=== PATIENT | female | born 1995 | race Caucasian/White ===

== ENCOUNTER 2020-03-25 16:48 | Outpatient (CLI) | payer OTHER, SELFPAY ==
--- NOTE | ~2020-03-25 | XR_ITS ---
XR knee RT 3V 03/25/2020 17:18 INDICATION: Right knee pain PROCEDURE: 4 views right knee COMPARISON: 03/04/2013 FINDINGS: Fracture, dislocation or subluxation is not identified. No significant joint effusion. The soft tissues appear within normal limits. No foreign bodies are identified. IMPRESSION: 1: NO ACUTE BONE OR JOINT ABNORMALITY IDENTIFIED. Reviewed, dictated and finalized at location A.
== END 2020-03-25 16:49 | disposition home or self-care (01) ==
LOC: CHSIMG 16:51
PROVIDERS: PCP Family Medicine; Visit Provider Family Medicine
DX: M25.561 Pain in right knee (principal)
CPT/HCPCS: 73562

== ENCOUNTER 2020-10-08 19:17 | Emergency (ER) | payer OTHER, SELFPAY ==
[2020-10-08 19:25] VITALS: BP 124/61; PULSE 87; RESP 18; TEMP 36.6; O2SAT 98
--- NOTE | 2020-10-08 19:43 | ED.DENTAL ---
HPI - Dental/Oral General Chief complaint: Dental/Oral Stated complaint: trouble swallowing, bleeding in the mouth. Source: patient Mode of arrival: ambulatory Limitations: no limitations History of Present Illness HPI Narrative: this is a 24-year-old female with recent dental extraction actually saw her dentist today and had her wisdom teeth pulled currently having some pain and swelling in the gum and lower jaw area had taken some Tylenol with codeine that was prescribed by her dentist but is afraid that is causing her to be short of breath, because her mother is allergic to codeine. Currently she is breathing easy with no audible wheezing no shortness of breath no fever chills no chest pain. There is some mild oozing from the gums but otherwise have has a gauze that she is biting down on an the gauze is not soaked with blood. Complaint: tooth pain Teeth map: 1. dental extraction molars, with pain inflammation and with minimal oozing and no overt bleeding from the gums. Onset (ago): hour(s) Duration: constant Severity: moderate Severity scale (1-10): 8 Relieving factors: prescription analgesics ( Worries about allergies, because her mother is allergic to codeine) and other Exacerbating factors: chewing and swallowing Context: other ( recent dental extraction) Associated symptoms: gum swelling Treatment prior to arrival: none Related Data Home Medications Medication Instructions Recorded Confirmed acetaminophen-codeine 1 tablet PO PRN PRN 10/08/20 10/08/20 amoxicillin 500 mg PO TID 10/08/20 10/08/20 sumatriptan succinate 100 mg PO PRN PRN 10/08/20 10/08/20 topiramate 50 mg PO BID 10/08/20 10/08/20 Allergies Allergy/AdvReac Type Severity Reaction Status Date / Time No Known Allergies Allergy Unverified 10/20/18 13:47 Review of Systems Review of Systems: All systems reviewed & are unremarkable except as noted in HPI and below PMFSH Past Medical History Medical History Dental caries Family History Family History Other Diabetes mellitus Family history of malignant neoplasm Social History Social History Smoking status: Heavy tobacco smoker Alcohol intake: never Exam Const: General: no acute distress and alert Orientation/consciousness: patient oriented x3 HENMT: Head: normal to inspection Other: left lower molar dental extraction performed today currently gum inflammation with minimal bleeding. Eyes: Conjunctivae: conjunctivae normal Pupils: Equal, round and reactive pupils present Neck: Neck: normal visual inspection, no lymphadenopathy and no meningeal signs Resp: Effort & Inspection: normal respiratory effort GI: Auscultation: normal bowel sounds : General: Yes no CVA tenderness Urinary Catheter: Urinary Catheter: patent and draining Back/Spine/Pelvis: Back: no CVA tenderness Skin: General skin exam: normal color Rashes: no rashes Psych: Appearance: grossly normal Mental Status: mental status grossly normal Course Course Emergency Course: Advised to stop taking Tylenol with codeine will prescribe Ultram, will give a dose of Toradol while here along with some Zofran ODT for nausea. Vital Signs Vital signs: Vital Signs Temperature 36.6 C 10/08/20 19:25 Pulse Rate 87 10/08/20 19:25 Respiratory Rate 18 10/08/20 19:25 Blood Pressure 124/61 10/08/20 19:25 Pulse Oximetry 98 10/08/20 19:25 Temperature 36.6 C 10/08/20 19:25 Pulse Rate 87 10/08/20 19:25 Respiratory Rate 18 10/08/20 19:25 Blood Pressure 124/61 10/08/20 19:25 Pulse Oximetry 98 10/08/20 19:25 Critical Care Time Critical Care Time Critical Care Time: No Discharge Plan Discharge Clinical Impression: Toothache Patient Disposition: Home, Self-Care Condition: Stable Instructions: Antibioti
[2020-10-08] MEDS: KETOROLAC (*BKC) 60 MG/2 ML VIAL IM (19:52)
[2020-10-08] MEDS: ONDANSETRON HCL ODT 4 MG TABLET PO (19:52)
[2020-10-08 20:10] VITALS: BP 128/70; PULSE 80; RESP 20; O2SAT 98
== END 2020-10-08 20:11 | disposition home or self-care (01) ==
PROVIDERS: Emergency Provider Emergency Medicine; PCP Family Medicine
DX: K08.89 Other specified disorders of teeth and supporting structures (principal)
CPT/HCPCS: 96372; 99283; A9270; J1885

== ENCOUNTER 2021-10-15 13:43 | Outpatient (CLI) | payer OTHER, SELFPAY ==
--- NOTE | ~2021-10-15 | XR_ITS ---
XR_CERV2-3V_CR 10/15/2021 14:13 Indication: Cervical spine pain for 3 years Procedure: 3 views of the cervical spine Comparison: 06/07/2019 Findings: There is reversal of cervical lordosis which is unchanged from prior examination, likely du e to muscle spasm. No prevertebral soft tissue swelling. No evidence for perched facet. No acute frac ture or traumatic malalignment. Lung apices are normal. Impression: 1: No acute abnormality of the cervical spine. 2: Reversal of cervical lordosis, likely due to muscle spasm. Reviewed, dictated and finalized at location B. ER EXPERT Impression: 1: No acute abnormality of the cervical spine. 2: Reversal of cervical lordosis, likely due to muscle spasm.
--- NOTE | ~2021-10-15 | XR_ITS ---
XR thoracic spine 3V 10/15/2021 14:12 Indication: Back pain Procedure: 3 views of the thoracic spine Comparison: No prior studies for comparison. Findings: Mild levocurvature of the lower thoracic spine. Vertebral body heights are maintained. No f racture, subluxation or dislocation. No paraspinal soft tissue abnormality. Pedicles are intact. Visu alized lung parenchyma is unremarkable. Impression: 1: No acute abnormality of the thoracic spine. Reviewed, dictated and finalized at location B. K HOLDER Impression: 1: No acute abnormality of the thoracic spine.
== END 2021-10-15 13:44 | disposition home or self-care (01) ==
PROVIDERS: PCP Family Medicine; Visit Provider Nurse Practitioner Family
DX: M54.9 Dorsalgia, unspecified (principal); M54.2 Cervicalgia
CPT/HCPCS: 72040; 72072

== ENCOUNTER 2022-03-29 00:31 | Emergency (ER) | payer OTHER, SELFPAY ==
--- NOTE | ~2022-03-29 | CT_ITS ---
EXAMINATION: CT brain wo con DATE: 03/29/2022 01:42 INDICATION: Headache. TECHNIQUE: Computed tomography (CT) of the head was performed without intravenous contrast. The mA wa s adjusted according to patient size. Iterative reconstruction technique was employed. The dose-lengt h product was 529.67 mGy-cm. COMPARISON: Cervical spine MRI 05/20/2017 FINDINGS: There is no intracranial hemorrhage, acute infarction, or abnormal intracranial mass lesion . The cerebellar tonsils extend 6 mm inferior to foramen magnum. The ventricles are normal in size. T here is mild mucosal thickening in the paranasal sinuses. The mastoid air cells are normal. The orbit s are normal. IMPRESSION: 1. Chiari I malformation. Reviewed, dictated and finalized at location A. IMPRESSION: 1. Chiari I malformation.
--- NOTE | 2022-03-29 00:41 | ED.HA ---
HPI - Headache General Chief Complaint: Headache Stated Complaint: lower back pain, Migrain Time Seen by Provider: 03/29/22 00:41 Source: patient Mode of arrival: ambulatory Limitations: no limitations History of Present Illness HPI Narrative: 26-year-old female with a history of she had a history of Chiari malformation migraine, recurrent headaches presents to the ER with 5 hour history of -- diffuse headache -- nausea with multiple episodes of -vomiting -- photophobia -- simultaneous bilateral sacroiliac pain without any history of trauma no aura noted. MD elicited complaint: headache Pertinent past history: other ( History of Chi Damian malformation) Onset (ago): hour(s) ( started 5 hours ago) Onset description: suddenly Location: generalized Severity: moderate Quality & Timing: aching and other ( she has not had this kind of a headache in the recent past) Exacerbating factors: none Relieving factors: nothing Context: occurred at rest Associated symptoms: nausea, vomiting and photophobia Treatments prior to arrival: none and other ( patient smoked marijuana prior to coming to the ER) Related Data Home Medications Medication Instructions Recorded Confirmed fluoxetine 40 mg capsule 40 cap PO DAILY 03/29/22 03/29/22 nortriptyline 50 mg capsule 50 cap PO DAILY 03/29/22 03/29/22 Allergies Allergy/AdvReac Type Severity Reaction Status Date / Time codeine Allergy Unknown Verified 03/29/22 01:36 Review of Systems Review of Systems: All systems reviewed & are unremarkable except as noted in HPI and below Constitutional: Constitutional: Reports as per HPI and Reports no additional constitutional complaints Eyes: Eyes: Reports as per HPI and Reports no additional eye complaints ENT: Reports system reviewed and no additional complaints, except as documented and Reports as per HPI Cardiovascular: Cardiovascular: Reports as per HPI and Reports no additional cardiovascular complaints Respiratory: Respiratory: Reports as per HPI and Reports no additional respiratory complaints Gastrointestinal: Gastrointestinal: Reports as per HPI and Reports no additional gastrointestinal complaints Genitourinary: Genitourinary: Reports no additional female genitourinary complaints and Reports as per HPI Musculoskeletal: Musculoskeletal: Reports no additional musculoskeletal complaints, Reports as per HPI and Reports back pain Integumentary/Breasts: Skin/Breast: Reports system reviewed and no additional complaints, except as docu and Reports as per HPI Neurologic: Reports system reviewed and no additional complaints, except as documented and Reports as per HPI Psychiatric: Psychiatric: Reports no additional psychiatric complaints Endocrine: Endocrine: Reports no additional endocrine complaints and Reports as per HPI Hematologic/Lymphatic: Hematologic/Lymphatic: Reports no additional hematologic/lymphatic complaints and Reports as per HPI Allergic/Immunologic: Allergic/Immunologic: Reports no additional allergic/immunologic complaints and Reports as per HPI PMF Past Medical History Medical History Dental caries Family History Family History Other Diabetes mellitus Family history of malignant neoplasm Social History Social History Smoking status: Heavy tobacco smoker Alcohol intake: never Exam Const: General: healthy appearing Nutritional Appearance: well nourished Orientation/consciousness: patient oriented x3 Limitations: no limitations HENMT: Head: normal to inspection Ears: external ears normal General nose exam: Normal external nose present Face and sinus: normal facial exam Mouth: Yes Normal oral and palatal mucosa present Throat: posterior oropharynx normal Eyes: Conjunctivae: conjunctivae normal EOM: EOMs intact bilaterally Direct O
[2022-03-29 01:09] VITALS: BP 121/77; PULSE 106; RESP 18; TEMP 36.4; O2SAT 99
[2022-03-29 01:14] LABS: Pregnancy On Board Control Positive; Urine Pregnancy Test Negative
[2022-03-29] MEDS: PROCHLORPERAZINE EDISYLATE 10 MG/2 ML VIAL IM (01:26)
[2022-03-29] MEDS: KETOROLAC 30 MG/ML VIAL (*BKC) IM (01:29)
[2022-03-29 03:55] VITALS: BP 96/70; PULSE 100; RESP 20; O2SAT 98
== END 2022-03-29 04:03 | disposition home or self-care (01) ==
PROVIDERS: Emergency Provider Internal Medicine Critical Care Medicine; PCP Family Medicine
DX: R51.9 Headache, unspecified (principal)
CPT/HCPCS: 70450; 81025; 96372; 99284; J0780; J1885

== ENCOUNTER 2022-07-07 11:52 | Emergency (ER) | payer OTHER, SELFPAY ==
--- NOTE | ~2022-07-07 | XR_ITS ---
EXAMINATION: XR ankle RT 2V INDICATION: Medial ankle pain after fall, initial encounter TECHNIQUE: Two views of the right ankle are obtained. COMPARISON: 04/26/2013 FINDINGS: There is a 2 mm heterotopic ossification projecting distal to the medial malleolus. Ankle a lignment is normal. There is no osteochondral lesion. There is diffuse soft tissue swelling of ankle. The joint spaces are normal. IMPRESSION: 1. Probable tiny avulsion fracture of the medial malleolus. Reviewed, dictated and finalized at location B.
[2022-07-07 12:30] VITALS: BP 128/68; PULSE 97; RESP 20; TEMP 36.7; O2SAT 97
[2022-07-07] MEDS: KETOROLAC (*BKC) 60 MG/2 ML VIAL IM (12:48)
--- NOTE | 2022-07-07 12:50 | ED.LOWEXIN ---
HPI - Extremity Injury (Lower) General Chief Complaint: Extremity Injury, Lower Stated Complaint: ANKLE PAIN Time Seen by Provider: 07/07/22 12:21 Source: patient and family History of Present Illness HPI Narrative: this is a 26-year-old female that presents after she rolled her ankle yesterday causing some swelling and pain in the medial and lateral malleolus with some no numbness or tingling can wiggle her toes has good range of motion although tender and painful because of pain and swelling. complaint: ankle injury Injury: Right: ankle ( Swollen and painful) Type of Injury: eversion Place: home Severity: moderate Severity scale (1-10): 7 Relieving factors: cold therapy and immobilization Exacerbating factors: weight bearing, movement and palpation Context: walking Associated symptoms: snap/pop sensation Other symptoms: none Related Data Home Medications Medication Instructions Recorded Confirmed fluoxetine 40 mg capsule 40 cap PO DAILY 03/29/22 03/29/22 nortriptyline 50 mg capsule 50 cap PO DAILY 03/29/22 03/29/22 Allergies Allergy/AdvReac Type Severity Reaction Status Date / Time codeine Allergy Unknown Verified 03/29/22 01:36 Review of Systems Review of Systems: All systems reviewed & are unremarkable except as noted in HPI and below PMFSH Past Medical History Medical History Dental caries Family History Family History Other Diabetes mellitus Family history of malignant neoplasm Social History Social History Smoking status: Heavy tobacco smoker Alcohol intake: never Exam Const: General: healthy appearing and no acute distress Nutritional Appearance: well nourished Orientation/consciousness: patient oriented x3 HENMT: Head: normal to inspection Ears: external ears normal Face/Nose/Sinus: Normal external nose present Mouth: Yes Normal oral and palatal mucosa present Eyes: EOM: EOMs intact bilaterally Direct Ophthalmoscopy: no photophobia Neck: Neck: normal visual inspection, no lymphadenopathy and no meningeal signs Chest: Chest palpation & inspection: normal inspection of the chest Resp: Effort & Inspection: normal respiratory effort Auscultation: clear to auscultation bilaterally Cardio: Rate: regular rate and bradycardic Rhythm: regular rhythm GI: GI Palp: Yes Soft to palpation Urinary Catheter: Urinary Catheter: patent and draining Back/Spine/Pelvis: Back: no CVA tenderness Skin: General skin exam: normal color Rashes: no rashes Wounds: no wounds Neuro: General: patient oriented x3 and moves all extremities Cranial nerves: Yes Nystagmus not present Speech: normal speech Extrem: Other: Swelling and tenderness in the lateral and medial malleolus of the right ankle Psych: Mental Status: mental status grossly normal Affect: normal affect Course Course Emergency Course: patient received IM Toradol and x-ray reviewed with patient which shows a tiny medial malleolus avulsion fracture Critical Care Time Critical Care Time Critical Care Time: No Discharge Plan Discharge Clinical Impression: Ankle fracture, right Qualifiers: Encounter type: initial encounter Fracture type: closed Qualified Code(s): S82.891A - Other fracture of right lower leg, initial encounter for closed fracture Patient Disposition: Home, Self-Care Condition: Stable Instructions: Antibiotic Form, Ankle Fracture (ED) Additional Instructions: take medicine as prescribed and follow-up primary care physician within 1 week for further evaluation treatment. Prescriptions: New naproxen 500 mg tablet 500 mg PO BID 7 Days Qty: 14 0RF Rx Instructions: take with meals No Action fluoxetine 40 mg capsule 40 cap PO DAILY nortriptyline 50 mg capsule 50 cap PO DAILY Follow-up/[facility]
[2022-07-07 13:14] VITALS: BP 122/69; PULSE 90; RESP 20; TEMP 36.8; O2SAT 98
== END 2022-07-07 13:20 | disposition home or self-care (01) ==
PROVIDERS: Emergency Provider Emergency Medicine; PCP Family Medicine
DX: S82.891A Other fracture of right lower leg, initial encounter for closed fracture (principal)
CPT/HCPCS: 73600; 96372; 99283; J1885; L2112